=== PATIENT | male | born 1950 | race Caucasian/White ===

== ENCOUNTER 2016-12-08 11:25 | Inpatient (IN) | payer OTHER, MEDICARE ==
[2016-12-08] VITALS (10 sets, daily range): BP systolic 109–157; BP diastolic 47–91
[~2016-12-08] VITALS: Ht 165.1 cm; Wt 74.4 kg
--- NOTE | ~2016-12-08 | PR ---
[place], [place] PROGRESS NOTE NAME: ROYAL Donnie GREEN UNIT #: [id number] ROOM: 402 DOCTOR: ZAINAB LACY MD BIRTHDATE: [birth year] DOS: 12/12/2016 PULMONARY FOLLOWUP NOTE SUBJECTIVE: He has been currently noted n.p.o. past midnight. Bronchoscopy, continuous severe nonproductive cough. Shortness of breath, the patient wheezing was also noted intermittently. He has not been noted symptoms of chest pain or any abdominal pain. OBJECTIVE: VITAL SIGNS: Normal temperature 99, respiratory rate 26, blood pressure 120/64. Pulse oxygen saturation recorded on 3 liters cannula 92% saturation. HEENT: Showed no new change. NECK: Supple. CARDIOVASCULAR: S1, S2 audible. LUNGS: The patient was noted without any wheezing or crackles at the present time. Breaths are noted mildly decreased bilaterally. ABDOMEN: Soft, nontender. LABORATORY DATA: BMP that was done this morning shows glucose of 219. Sodium 135. CBC this morning, WBC count 15.7, hemoglobin 13.9, hematocrit 43.1, platelet count 527,000. Culture of the spontaneous sputum on 12/10/2016 showing normal jonn. The final culture results were pending. CT scan of the chest that was ordered for assessment of persistent infiltration on the left lower lobe. The patient was reviewed, it shows evidence of patchy infiltration noted in the lingula and left lower lobe and also area of consolidation noted in the left lower lobe as well. There was no abnormal lymphadenopathy any nodular opacities. IMPRESSION: 1. The patient with persistent acute pneumonia. The patient with resolving left lingula and the left lower lobe. Currently n.p.o. for bronchoscopy. 2. Leukocytosis secondary to acute pneumonia. 3. Acute exacerbation of chronic obstructive pulmonary disease. PLAN OF MANAGEMENT: Proceed with the bronchoscopy. No additional changes at this time in the treatment will be necessary. Any changes in the treatment if necessary will be done after the bronchoscopy. Other supportive plan and management as in progress. Usual care. [place], [place] PROGRESS NOTE NAME: ROYAL Donnie GREEN UNIT #: [id number] ROOM: 402 DOCTOR: ZAINAB LACY MD BIRTHDATE: [birth year] ZAINAB CASTORENA MD CM:PNTRANS [phone] ZAINAB HOFF MD 12/12/16 1154 interface
--- NOTE | ~2016-12-08 | CON ---
[place], [place] REPORT OF CONSULTATION NAME: ROYAL Donnie RGEEN UNIT #: [id number] ROOM: 402 DOCTOR: KELL HOFF MDZAINAB BIRTHDATE: [birth year] DOS: 12/09/2016 REASON FOR CONSULTATION: Assess the patient with COPD. CONSULTATION REQUESTED BY: Hospitalist services. HISTORY OF PRESENT ILLNESS: A 66-year-old white male with past medical history of centrilobular emphysema/COPD and chronic hypoxic respiratory failure, presented to the Emergency Room. The patient has been noted to be acutely ill for the past few days. He has been usually managed in [facility]. The patient requested antibiotics. The patient was advised to come to the Emergency Room. He has been seen in the Emergency Room, admitted to the hospital for acute exacerbation of COPD. Cough has been noted with moderate sputum expectoration intermittently with symptoms of shortness of breath, wheezing and chest congestion. The patient denies symptoms of hemoptysis. The patient described symptoms of chills as well as fever, intermittent for the past couple of days. REVIEW OF SYSTEMS: CONSTITUTIONAL: Denies symptoms of diaphoresis. Denies any abnormal weight loss history. EYES: Denies any burning, redness, tenderness, discharge or blurry vision. EARS, NOSE AND THROAT: Denies sore throat, hoarseness, otalgia, postnasal drainage or epistaxis. CARDIOVASCULAR: Denies anginal pain, edema or pain of the lower extremities. GASTROINTESTINAL: Denies dysphagia, nausea, vomiting, diarrhea, abdominal pain, hematemesis, melena, dysphagia or abnormal weight loss history. GENITOURINARY: Denies dysuria, suprapubic pain or hematuria. MUSCULOSKELETAL: Denies acute joint pain, redness or tenderness. SKIN: Denies lesions or rashes. CENTRAL NERVOUS SYSTEM: Denies dizziness, headache, tingling sensation. The remaining systems were reviewed with the patient, they were noted all negative. PAST MEDICAL HISTORY: 1. History of chronic hypoxic respiratory failure. 2. COPD/centrilobular emphysema. 3. History of type 2 diabetes mellitus. 4. Essential hypertension. 5. Hyperlipidemia. 6. History of pulmonary hypertension, details unknown. 7. Vitamin D deficiency. 8. Anemia of chronic disease. PAST SURGICAL HISTORY: 1. Appendectomy. 2. Cataract extraction. 3. Kidney stone removal. 4. Surgery of the extremities. SOCIAL HISTORY: The patient stated that he is , has one child. Tobacco [place], [place] REPORT OF CONSULTATION NAME: ROYAL Donnie GREEN UNIT #: [id number] ROOM: 402 DOCTOR: KELL HOFF MD,ZANIAB BIRTHDATE: [birth year] use noted as a teenager, 1 pack of cigarettes per day, discontinued in 2014 approximately. Denies history of occupation related pulmonary exposure, alcohol or any illicit drug use. FAMILY HISTORY: Father at the age of 79 years from complication related to cancer. Mother with complication related to rupture of the aneurysm. HOME MEDICATIONS: 1. Proventil HFA inhaler p.r.n. 2. Aspirin 81 mg p.o. daily. 3. Vitamin D, unknown dose daily. 4. Advair 250/50 one puff b.i.d. 5. Neurontin 600 mg at bedtime. 6. Atrovent HFA inhaler p.r.n. 7. DuoNeb q.i.d. p.r.n. for shortness of breath. DRUG ALLERGIES: SPIRIVA. PHYSICAL EXAMINATION: GENERAL: This is a 66-year-old male patient who has been currently noted without any acute distress, sitting on the side of the bed. VITAL SIGNS: The patient's height was recorded on admission as 5 feet 5 inches, weight of 164 pounds, BMI 27.3. Normal temperature at 99.5 degree Fahrenheit, respiratory rate 18-20, heart rate 95-106 and blood pressure 108/60 to 100/86. Pulse oxygen saturation on 4 liters nasal cannula 95%, this morning on 2 liters nasal cannula 97% saturation recorded. HEENT: Shows head is atraumatic. Eyes nonicterus. NECK: Supple. CARDIOVASCULAR: S1, S2 is audible. LUNGS: Noted without any crackles. Expiratory wheezing noted in the lungs bilaterally. ABDOMEN: Flat, soft, nontender. Bowel sounds present. EXTREMITIES: Show no edema, clubbing or cyanosis. SKIN: Shows no lesions or rashes. MUSCULOSKELETAL: There are no acute deformities. LABORATORY DATA: PT and PTT yesterday was noted as normal. CBC on 12/08/2016: WBC count 14.7, hemoglobin 14, hematocrit 42.2 and platelet count normal. CMP yesterday on admission: Glucose 180, BUN and creatinine normal, sodium 135, albumin 2.9, lactic acid yesterday noted as 1.5 on admission, troponin noted as normal yesterday on admission. CBC this morning: Hemoglobin 12.7, hematocrit 38.8, WBC count and platelet count normal. BMP that was done this morning: Glucose 130, BUN and creatinine normal, potassium mildly decreased at 3.2. Culture of the sputum, normal jonn preliminary. Gram stain shows many white blood cells with a few Gram-positive cocci. Chest x-ray that was done on 12/08/2016 was reviewed. It shows evidence of acute infiltration noted in the left lower lobe and the lingula. The findings compared to be as new since the last chest x-ray of patient was in 2012. [place], [place] REPORT OF CONSULTATION NAME: ROYAL Donnie GREEN UNIT #: [id number] ROOM: 402 DOCTOR: KELL HOFF MD,ZAINAB BIRTHDATE: [birth year] IMPRESSION: 1. The patient has been currently admitted to the hospital for suspected acute pneumonia, nonaspiration with typical and atypical organisms. Gram-positive cocci with Strep pneumonia was suspected with other atypical organisms as well. 2. Acute exacerbation of chronic obstructive pulmonary disease and acute on chronic hypoxic respiratory failure with oxygen dependency. 3. Past history of tobacco use as well. PLAN OF MANAGEMENT: The patient has been already getting intravenous antibiotic and that will be continued. Monitor culture results of the sputum. Obtain urine for Legionella antigen and the Strep pneumo antigen as well. Monitor cultures of blood which has been already sent yesterday. Other supportive therapy, plan and management and care. Usual treatment. Additional therapy to be made based on the progression of the illness. Supplement the mild hypokalemia. Usual care, other supportive therapy, plan of management and care. Additional changes in treatment will be done based on the progression of the illness. Monitor chest x-ray closely until there is resolution of this current abnormality. If the finding remains persistent, certainly consider obtaining a CT scan of the chest at that time. Thanks for allowing me to participate in the care of this patient. ZAINAB CASTORENA MD CM:CONSTR:REPORT OF CONSULTATION 1115 12/11/16 1258 interface
--- NOTE | ~2016-12-08 | PR ---
[place], [place] PROGRESS NOTE NAME: ROYAL Donnie GREEN UNIT #: [id number] ROOM: 402 DOCTOR: KELL HOFF MD,ZAINAB BIRTHDATE: [birth year] DOS: 12/13/2016 SUBJECTIVE: The patient has been noted comfortable with significant reduction and improvement in symptoms of cough after bronchoscopy. There were no symptoms of chest pain or abdominal pain. There was no wheezing noted today. OBJECTIVE: VITAL SIGNS: Normal temperature, respiratory rate 18, heart rate 81, and blood pressure 114/58. The pulse oxygen saturation on 3 L nasal cannula is 96% saturation. HEENT: Shows no acute change. NECK: Supple. CARDIOVASCULAR: S1, S2 audible. LUNGS: Noted without any wheezing or crackles at this time. ABDOMEN: Soft, nontender. LABORATORY DATA: Chest x-ray showed reduction of previously noted pulmonary infiltration of the left lower lobe. CMP was noted as normal except albumin 2.7. Preliminary culture of the bronchial washing showed normal jonn. Gram stain showed few white blood cells, epithelial cells as well as Gram-positive cocci in pairs and clusters. IMPRESSION: Resolving acute pneumonia in left lingula and left lower lobe with partial improvement in some of the areas, which was most likely related to atelectasis resolving. Leukocytosis still noted with WBC count today 21.4, most likely related to the use of corticosteroids. PLAN OF TREATMENT: The patient could be discharged home on oral doxycycline and tapering prednisone. Outpatient chest x-ray could be done in a couple of weeks to reassess through the [facility]. ZAINAB CASTORENA MD CM:PNTRANS [id number] ZAINAB HOFF MD 12/13/16 1404 interface
--- NOTE | ~2016-12-08 | PR ---
[place], [place] PROGRESS NOTE NAME: ROYAL Donnie GREEN UNIT #: [id number] ROOM: 402 DOCTOR: ZAINAB LACY MD BIRTHDATE: [birth year] DOS: 12/10/2016 SUBJECTIVE: He has reported gradual reduction and improvement of the respiratory symptoms. Denies symptoms of chest pain or any abdominal pain. The coughing has been noted with copious amount of purulent sputum. Denies any symptoms of hemoptysis. OBJECTIVE: VITAL SIGNS: Normal temperature, respiratory rate 20, heart rate 84, blood pressure 114/56 - 117/42. Pulse oxygen saturation on 2 liters nasal cannula 95% saturation. HEENT: No acute change. NECK: Supple. CARDIOVASCULAR: S1, S2 audible. LUNGS: Crackles in the left lung was noted with expiratory wheezing. ABDOMEN: Soft, nontender. LABORATORY DATA: Culture of the sputum showed normal jonn. Blood culture from the 14 showed no bacterial growth. CMP of this morning was noted normal BUN and creatinine, CO2 was 33. CBC: Normal WBC count, hemoglobin and hematocrit was noted with normal platelet count 388,000. IMPRESSION: 1. Acute bacterial pneumonia in the left lower lobe which is noted with significant infiltration in the left lung. 2. Chronic obstructive pulmonary disease. 3. Past history of nicotine abuse. PLAN OF TREATMENT: Continue antibiotics, bronchodilators. Repeat chest x-ray in the morning to reassess the progression of pneumonia prior to consideration for home discharge. Repeat another sputum culture as well because of copious amount of sputum expectoration being noted. Other supportive therapy, plan of management. Usual care. [place], [place] PROGRESS NOTE NAME: ROYAL Donnie GREEN UNIT #: [id number] ROOM: 402 DOCTOR: ZAINAB LACY MD BIRTHDATE: [birth year] ZAINAB CASTORENA MD CM:PNTRANS [phone] ZAINAB HOFF MD 12/10/162228 interface
--- NOTE | ~2016-12-08 | PROC NOTE ---
[place], [place] PROCEDURE NOTE NAME: ROYAL Donnie GREEN UNIT #: [id number] ROOM: 402 DOCTOR: KELL HOFF MD,ZAINAB BIRTHDATE: [birth year] DOS: 12/12/2016 BRONCHOSCOPY NOTE PREOPERATIVE DIAGNOSIS: Persistent infiltration in the left lingular lower lobe. POSTOPERATIVE DIAGNOSES: Persistent infiltration in the left lingular lower lobe with removal of mucus plugs from airways as well as ongoing tracheobronchitis. PROCEDURE DESCRIPTION: Informed consent was obtained for the patient. The patient was brought to the OR and placed in supine position. Conscious sedation was administered by the Anesthesia Department. After achieving appropriate sedation, airway introduced into the mouth. Bronchoscope was advanced into the airway into laryngeal area. Epiglottis and vocal cords were seen. The vocal cord was noted to be yellowish in color, moving symmetrical with movements. Bronchoscope was advanced to the vocal cord and tracheal lumen showed moderate amount of thick mucus secretions and small purulent secretions suctioned out at the yesenia level. Left upper, lingular, lower and right upper, right middle, right lower lobe bronchi were all examined. The patient was noted with moderate impaction of the mucus plugs and endobronchial tree bilaterally, suctioned out with the help of normal saline wash and sent for cultures. No endobronchial obstructive lesions were noted. The patient tolerated procedure very well without any complications. Postoperative findings were discussed with the patient's spouse in detail after that. ZAINAB CASTORENA MD CM:PROCNOTE:PROCEDURE NOTE [id number] ZAINAB HOFF MD
--- NOTE | ~2016-12-08 | PR ---
[place], [place] PROGRESS NOTE NAME[id number] UNIT #: [id number] ROOM: 402 DOCTOR: KELL HOFF MD,ZAINAB BIRTHDATE: [birth year] DOS: 12/11/2016 SUBJECTIVE: The patient has been noted with similar respiratory status, still noted with severe cough, which has been noted currently nonproductive today. The patient has been noted significant sputum expectoration yesterday. He denies any symptoms of chest pain or any abdominal pain. OBJECTIVE: VITAL SIGNS: Recorded temperature normal, respiratory rate 20, heart rate 88, blood pressure 124/66-133/61. Pulse oxygen saturation on 2 liters nasal cannula was recorded 94% saturation. HEENT: Head was atraumatic. Eyes nonicterus. NECK: Supple. CARDIOVASCULAR: S1, S2 audible. LUNGS: The patient was noted with generalized reduced air entry into the lungs with questionable crackles in the right lung. ABDOMEN: Soft and nontender. LABORATORY DATA: Chest x-ray 2 view that was done this morning was reviewed. It shows persistent infiltration in the left lung. Hyperinflation changes of COPD were also noted. CBC this morning showed normal WBC count, hemoglobin 13, hematocrit 39.8, and platelet count was normal. CMP on 12/11/2016 was also noted with BUN 13, creatinine was normal, and glucose 133. IMPRESSION: The patient who has been currently noted with persistent infiltration in the lung with acute pneumonia. In addition, acute exacerbation of chronic obstructive pulmonary disease would be considered as well with severe nonproductive cough. Suspected mucous impaction of the airways as well. PLAN OF TREATMENT: The patient has been started on intravenous Solu-Medrol. CT scan of the chest was ordered with contrast for further assessment, recurrent persistent infiltration not improving for more clear anatomic delineation of the problem. Bronchoscopy was suggested, will be done tomorrow to help clear secretions with conscious sedation. The risks and benefits of the procedure were discussed with the patient. The patient was agreeable for the procedure and it was scheduled to be done in the morning. In addition, Zithromax will be discontinued. The patient was started on doxycycline for additional Gram-positive coverage for atypical infections. Other supportive therapy, plan and management as well. Usual care. Additional treatment changes continue to be made based on the progression of the illness. [place], [place] PROGRESS NOTE NAME: ROYAL Donnie GREEN UNIT #: [id number] ROOM: 402 DOCTOR: ZAINAB LACY MD BIRTHDATE: [birth year] ZAINAB CASTORENA MD CM:PNTRANS [id number] ZAINAB HOFF MD 12/11/16 1308 interface
[~2016-12-08 11:25] MED LIST: ADVAIR 250/501 EA INH; ALBUTEROL0.09 MG/A2 IH; AMOXIL500 MG PO; ASPIRIN81 M1 PO; ATROVENT H0.017 MG/A INH; CIPRO500 MG PO; DELTASONE10 MG PO; DICLOFENAC NA25 MG PO; DOXYCYCLINE100 MG PO; DUONEB 3 MG/3 ML3 M1 INH; LEVOFLOXACIN500 MG PO; NEURONTIN600 MG PO; PREDNISONE10 MG PO; PREDNISONE20 M1 PO; PRILOSEC20 M1 PO; SIMVASTATIN20 MG PO; VITAMIN B11000 MCG/M IM; VITAMIN D31000 UNI1 PO; VITAMIN D50000 I3 PO; [UNRECOGNIZED DRUG - OTHER] PO
[2016-12-08 12:18] LABS: BASO % 0.3 % (0.0-1.0); EOS # 0.1 10*3/uL (0.0-0.4); EOS % 0.7 % (1.0-4.0); HEMATOCRIT 42.2 % (42.0-52.0); HEMOGLOBIN 14.1 g/dl (14.0-18.0); IG # 0.1 10*3/uL (0.0-0.1); LYMPH # 1.5 10*3/uL (1.3-4.4); LYMPH % 10.3 % (27.0-41.0); MEAN CELL VOLUME 97.7 fl (80.0-94.0); MEAN CORPUSCULAR HGB 32.6 pg (27.0-31.0); MEAN CORPUSCULAR HGB CONC 33.4 g/dl (33.0-37.0); MEAN PLATELET VOLUME 9.5 fl (9.6-12.3); MONO # 1.4 10*3/uL (0.1-1.0); MONO % 9.3 % (3.0-9.0); NEUT # 11.5 10*3/uL (2.3-7.9); NEUT % 78.5 % (47.0-73.0); PLATELET COUNT AUTOMATED 376 10*3/uL (130-400); RED BLOOD COUNT 4.32 10*6/uL (4.50-5.90); WHITE BLOOD COUNT 14.7 10*3/uL (4.8-10.8)
[2016-12-08 12:28] LABS: PROTHROMBIN TIME 10.1 SECONDS (9.0-12.4)
[2016-12-08 12:35] LABS: ALBUMIN 2.9 gm/dl (3.1-4.5); ALKALINE PHOSPHATASE 98 U/L (45-117); BILIRUBIN, TOTAL 0.4 mg/dl (0.2-1.0); BUN 10 mg/dl (7-24); CARBON DIOXIDE 30 mmol/L (21-32); CHLORIDE 96 mmol/L (98-107); EST GLOM FILT AFRICAN AMERICAN > 60 ml/min; GLUCOSE 180 mg/dL (65-99); MAGNESIUM 2.3 mg/dL (1.5-2.1); POTASSIUM 3.6 mmol/L (3.5-5.1); SGOT/AST 15 IU/L (3-35); SGPT/ALT 35 U/L (12-78); SODIUM 135 mmol/L (136-145); TOTAL PROTEIN 7.9 gm/dL (6.4-8.2)
[2016-12-08 12:38] LABS: TROPONIN I < 0.015 ng/ml (<0.045)
[2016-12-08] MEDS ORDERED: PROVENTIL HFA6.7 GM INH (16:55)
[2016-12-08] MEDS ORDERED: ASMANEX110 MC1 INH (16:58)
[2016-12-08] MEDS ORDERED: VOLTAREN50 M1 PO (16:59)
[2016-12-08] MEDS ORDERED: ASMANEX INH (17:00)
[2016-12-08] MEDS ORDERED: ASMANEX220 MCG INH (20:57)
[2016-12-09] VITALS: BP 108/60
[2016-12-09 05:43] LABS: BUN 12 mg/dl (7-24); CARBON DIOXIDE 29 mmol/L (21-32); CHLORIDE 100 mmol/L (98-107); CHOLESTEROL 188 mg/dL (<200); EST GLOM FILT AFRICAN AMERICAN > 60 ml/min; GLUCOSE 130 mg/dL (65-99); MAGNESIUM 2.4 mg/dL (1.5-2.1); PHOSPHOROUS 3.6 mg/dL (2.5-4.9); POTASSIUM 3.2 mmol/L (3.5-5.1); SODIUM 136 mmol/L (136-145); TRIGLYCERIDES 141 mg/dl (<150); VLDL CHOLESTEROL 28 mg/dL (6-40)
[2016-12-09 05:44] LABS: HDL CHOLESTEROL 32 mg/dl (40-60); LDL CHOLESTEROL 128 mg/dL (9-159)
[2016-12-09 05:58] LABS: BASO # 0.1 10*3/uL (0.0-0.1); BASO % 0.7 % (0.0-1.0); EOS # 0.2 10*3/uL (0.0-0.4); EOS % 2.1 % (1.0-4.0); HEMATOCRIT 38.8 % (42.0-52.0); HEMOGLOBIN 12.7 g/dl (14.0-18.0); IG # 0.2 10*3/uL (0.0-0.1); LYMPH % 20.3 % (27.0-41.0); MEAN CORPUSCULAR HGB 31.8 pg (27.0-31.0); MEAN CORPUSCULAR HGB CONC 32.7 g/dl (33.0-37.0); MONO # 1.2 10*3/uL (0.1-1.0); MONO % 12.4 % (3.0-9.0); NEUT # 6.3 10*3/uL (2.3-7.9); PLATELET COUNT AUTOMATED 369 10*3/uL (130-400)
[2016-12-09 06:37] LABS: HEMOGLOBIN A1c 6.9 % (4.8-5.6)
[2016-12-09 08:00] VITALS: BP 100/86
[2016-12-09 12:00] VITALS: BP 123/58
[2016-12-09 16:00] VITALS: BP 126/63
[2016-12-09 16:53] LABS: VITAMIN D, 25-HYDROXY 34.2 ng/mL (30-100)
[2016-12-09 16:54] LABS: FOLIC ACID 8.64 ng/mL (>5.38)
[2016-12-09 20:00] VITALS: BP 115/60
[2016-12-10] VITALS: BP 117/42
[2016-12-10 04:46] LABS: BASO % 0.5 % (0.0-1.0); EOS # 0.2 10*3/uL (0.0-0.4); EOS % 2.8 % (1.0-4.0); HEMATOCRIT 39.5 % (42.0-52.0); HEMOGLOBIN 12.9 g/dl (14.0-18.0); IG # 0.1 10*3/uL (0.0-0.1); LYMPH # 1.9 10*3/uL (1.3-4.4); LYMPH % 22.7 % (27.0-41.0); MEAN CORPUSCULAR HGB CONC 32.7 g/dl (33.0-37.0); MEAN PLATELET VOLUME 9.6 fl (9.6-12.3); MONO # 0.9 10*3/uL (0.1-1.0); MONO % 10.3 % (3.0-9.0); NEUT # 5.3 10*3/uL (2.3-7.9); PLATELET COUNT AUTOMATED 388 10*3/uL (130-400); RED BLOOD COUNT 4.03 10*6/uL (4.50-5.90); WHITE BLOOD COUNT 8.5 10*3/uL (4.8-10.8)
[2016-12-10 05:05] LABS: ALBUMIN 2.5 gm/dl (3.1-4.5); ALKALINE PHOSPHATASE 84 U/L (45-117); BILIRUBIN, TOTAL 0.3 mg/dl (0.2-1.0); BUN 12 mg/dl (7-24); CARBON DIOXIDE 33 mmol/L (21-32); CHLORIDE 100 mmol/L (98-107); EST GLOM FILT AFRICAN AMERICAN > 60 ml/min; GLUCOSE 127 mg/dL (65-99); SGOT/AST 19 IU/L (3-35); SGPT/ALT 38 U/L (12-78)
[2016-12-10 05:08] LABS: SODIUM 139 mmol/L (136-145)
[2016-12-10 05:09] LABS: POTASSIUM 4.2 mmol/L (3.5-5.1)
[2016-12-10 08:00] VITALS: BP 114/56
[2016-12-10 12:00] VITALS: BP 114/76; BP 114/761
[2016-12-10 16:00] VITALS: BP 120/66
[2016-12-10 20:00] VITALS: BP 129/57
[2016-12-11] VITALS: BP 133/61
[2016-12-11 05:53] LABS: ALBUMIN 2.7 gm/dl (3.1-4.5); BUN 13 mg/dl (7-24); CARBON DIOXIDE 32 mmol/L (21-32); CHLORIDE 99 mmol/L (98-107); GLUCOSE 133 mg/dL (65-99); POTASSIUM 3.9 mmol/L (3.5-5.1); SODIUM 137 mmol/L (136-145)
[2016-12-11 05:57] LABS: ALKALINE PHOSPHATASE 80 U/L (45-117); BILIRUBIN, TOTAL 0.2 mg/dl (0.2-1.0); EST GLOM FILT AFRICAN AMERICAN > 60 ml/min; SGOT/AST 21 IU/L (3-35); SGPT/ALT 41 U/L (12-78); TOTAL PROTEIN 7.2 gm/dL (6.4-8.2)
[2016-12-11 06:06] LABS: BASO # 0.1 10*3/uL (0.0-0.1); BASO % 0.7 % (0.0-1.0); EOS # 0.4 10*3/uL (0.0-0.4); EOS % 3.3 % (1.0-4.0); HEMATOCRIT 39.8 % (42.0-52.0); IG # 0.2 10*3/uL (0.0-0.1); LYMPH # 2.2 10*3/uL (1.3-4.4); LYMPH % 21.1 % (27.0-41.0); MEAN CELL VOLUME 97.5 fl (80.0-94.0); MEAN CORPUSCULAR HGB 31.9 pg (27.0-31.0); MEAN CORPUSCULAR HGB CONC 32.7 g/dl (33.0-37.0); MEAN PLATELET VOLUME 9.6 fl (9.6-12.3); MONO # 0.8 10*3/uL (0.1-1.0); NEUT # 6.9 10*3/uL (2.3-7.9); NEUT % 65.5 % (47.0-73.0); PLATELET COUNT AUTOMATED 466 10*3/uL (130-400); RED BLOOD COUNT 4.08 10*6/uL (4.50-5.90); WHITE BLOOD COUNT 10.5 10*3/uL (4.8-10.8)
[2016-12-11 08:00] VITALS: BP 124/66
[2016-12-11 12:00] VITALS: BP 127/60
[2016-12-11 15:09] LABS: ORGANISM ID Not indicated. (.); SPECIMEN SOURCE Urine (.); STREPTOCOCCUS PNEUMONIAE AG Negative (Negative)
[2016-12-11 16:00] VITALS: BP 138/66
[2016-12-11 16:11] LABS: LEGIONELLA URINARY ANTIGEN Negative (Negative)
[2016-12-11 20:00] VITALS: BP 133/60
[2016-12-12] VITALS (9 sets, daily range): BP systolic 115–147; BP diastolic 56–109
[2016-12-12 05:20] LABS: BUN 16 mg/dl (7-24); CARBON DIOXIDE 32 mmol/L (21-32); CHLORIDE 96 mmol/L (98-107); EST GLOM FILT AFRICAN AMERICAN > 60 ml/min; GLUCOSE 219 mg/dL (65-99); POTASSIUM 4.6 mmol/L (3.5-5.1); SODIUM 135 mmol/L (136-145)
[2016-12-12 05:53] LABS: HEMATOCRIT 43.1 % (42.0-52.0); HEMOGLOBIN 13.9 g/dl (14.0-18.0); MEAN CELL VOLUME 97.5 fl (80.0-94.0); MEAN CORPUSCULAR HGB 31.4 pg (27.0-31.0); MEAN CORPUSCULAR HGB CONC 32.3 g/dl (33.0-37.0); MEAN PLATELET VOLUME 9.5 fl (9.6-12.3); PLATELET COUNT AUTOMATED 527 10*3/uL (130-400); RED BLOOD COUNT 4.42 10*6/uL (4.50-5.90); RED CELL DISTRI WIDTH 12.8 % (0-14.5); WHITE BLOOD COUNT 15.7 10*3/uL (4.8-10.8)
[2016-12-12 06:56] LABS: LYMPHOCYTE # 1.4 10*3/uL (1.3-4.4); METAMYELOCYTES 1 % (0-0); MONOCYTE # 0.2 10*3/uL (0.1-1.0); NEUTROPHILS 89 % (47-73); TOTAL CELLS COUNTED 100 #CELLS
[2016-12-12 06:57] LABS: PLATELET SUFFICIENCY HIGH (NORMAL); TOXIC GRANULATION SLIGHT
[2016-12-13] VITALS: BP 131/61; BP 144/64
[2016-12-13 04:00] VITALS: BP 130/60
[2016-12-13 07:12] LABS: BASO # 0.1 10*3/uL (0.0-0.1); BASO % 0.2 % (0.0-1.0); EOS % 0.1 % (1.0-4.0); HEMATOCRIT 38.2 % (42.0-52.0); HEMOGLOBIN 12.7 g/dl (14.0-18.0); IG # 0.2 10*3/uL (0.0-0.1); LYMPH # 3.1 10*3/uL (1.3-4.4); LYMPH % 14.6 % (27.0-41.0); MEAN CELL VOLUME 96.7 fl (80.0-94.0); MEAN CORPUSCULAR HGB 32.2 pg (27.0-31.0); MEAN CORPUSCULAR HGB CONC 33.2 g/dl (33.0-37.0); MEAN PLATELET VOLUME 9.4 fl (9.6-12.3); MONO # 0.9 10*3/uL (0.1-1.0); MONO % 4.3 % (3.0-9.0); NEUT # 17.1 10*3/uL (2.3-7.9); NEUT % 79.9 % (47.0-73.0); PLATELET COUNT AUTOMATED 478 10*3/uL (130-400); RED BLOOD COUNT 3.95 10*6/uL (4.50-5.90); RED CELL DISTRI WIDTH 12.8 % (0-14.5); WHITE BLOOD COUNT 21.4 10*3/uL (4.8-10.8)
[2016-12-13 07:28] LABS: ALBUMIN 2.7 gm/dl (3.1-4.5); ALKALINE PHOSPHATASE 73 U/L (45-117); BILIRUBIN, TOTAL 0.2 mg/dl (0.2-1.0); BUN 19 mg/dl (7-24); CARBON DIOXIDE 31 mmol/L (21-32); CHLORIDE 98 mmol/L (98-107); EST GLOM FILT AFRICAN AMERICAN > 60 ml/min; GLUCOSE 95 mg/dL (65-99); POTASSIUM 3.9 mmol/L (3.5-5.1); SGOT/AST 18 IU/L (3-35); SGPT/ALT 40 U/L (12-78); SODIUM 139 mmol/L (136-145); TOTAL PROTEIN 6.8 gm/dL (6.4-8.2)
[2016-12-13 08:00] VITALS: BP 114/58
[2016-12-13] MEDS ORDERED: PREDNISONE10 MG PO (11:27)
[2016-12-13] MEDS ORDERED: DOXYCYCLINE100 M3 PO (11:27)
[2016-12-13 13:05] LABS: ACID FAST SPEC PROCESSING Concentration (.)
== END 2016-12-13 12:15 | disposition home or self-care (01) | DRG 871 ==
LOC: ED 11:25 → 4E 13:13 → EDHOLD 13:13 → 4E 13:21
PROVIDERS: Emergency Medicine; Internal Medicine; Internal Medicine Critical Care Medicine; Internal Medicine Hospice and Palliative Medicine; Registered Nurse
DX: A41.9 Sepsis, unspecified organism (principal); J15.6 Pneumonia due to other Gram-negative bacteria; J96.21 Acute and chronic respiratory failure with hypoxia; E43 Unspecified severe protein-calorie malnutrition; I11.0 Hypertensive heart disease with heart failure; I50.32 Chronic diastolic (congestive) heart failure; T17.590A Other foreign object in bronchus causing asphyxiation, initial encounter; E83.41 Hypermagnesemia; I27.2 Other secondary pulmonary hypertension; E87.1 Hypo-osmolality and hyponatremia; J44.1 Chronic obstructive pulmonary disease with (acute) exacerbation; J44.0 Chronic obstructive pulmonary disease with (acute) lower respiratory infection; E87.8 Other disorders of electrolyte and fluid balance, not elsewhere classified; E87.6 Hypokalemia; J40 Bronchitis, not specified as acute or chronic; D53.9 Nutritional anemia, unspecified; D63.8 Anemia in other chronic diseases classified elsewhere; D47.3 Essential (hemorrhagic) thrombocythemia; E11.65 Type 2 diabetes mellitus with hyperglycemia; E78.5 Hyperlipidemia, unspecified; X58.XXXA Exposure to other specified factors, initial encounter; Y93.89 Activity, other specified; Y92.89 Other specified places as the place of occurrence of the external cause; Y99.8 Other external cause status; Z88.8 Allergy status to other drugs, medicaments and biological substances; Z68.27 Body mass index [BMI] 27.0-27.9, adult; Z90.49 Acquired absence of other specified parts of digestive tract; Z87.891 Personal history of nicotine dependence; Z99.81 Dependence on supplemental oxygen; Z98.49 Cataract extraction status, unspecified eye; Z80.9 Family history of malignant neoplasm, unspecified; Z79.51 Long term (current) use of inhaled steroids; Z79.82 Long term (current) use of aspirin; Z79.899 Other long term (current) drug therapy

== ENCOUNTER → 2017-09-30 | Outpatient (CLI) | payer OTHER, MEDICARE ==
[~2017-09-30] MED LIST changes: +ASMANEX INH; +ASMANEX110 MC1 INH; +ASMANEX220 MCG INH; +DOXYCYCLINE100 M3 PO; +PROVENTIL HFA6.7 GM INH; +VOLTAREN50 M1 PO
[2017-09-30 13:27] LABS: BUN 15 mg/dl (7-24); CHLORIDE 91 mmol/L (98-107); CREATININE 1.37 mg/dL (0.70-1.30); POTASSIUM 3.1 mmol/L (3.5-5.1); SODIUM 137 mmol/L (136-145)
== END | disposition home or self-care (01) ==
LOC: LAB 12:43
PROVIDERS: Nurse Practitioner Family
DX: E87.6 Hypokalemia (principal)

== ENCOUNTER → 2019-04-21 | Outpatient (CLI) | payer OTHER | END | disposition home or self-care (01) | LOC: CT 10:29 | DX: J18.0 Bronchopneumonia, unspecified organism (principal); D47.3 Essential (hemorrhagic) thrombocythemia; J44.9 Chronic obstructive pulmonary disease, unspecified; Z86.2 Personal history of diseases of the blood and blood-forming organs and certain disorders involving the immune mechanism; Z87.891 Personal history of nicotine dependence ==

== ENCOUNTER 2021-01-11 19:07 | Inpatient (IN) | payer OTHER ==
[~2021-01-11] VITALS: Ht 170.1 cm; Wt 68.0 kg
[2021-01-11 19:07] VITALS: BP 146/69
[2021-01-11 19:40] LABS: BASO # 0.1 10*3/uL (0.0-0.1); BASO % 0.3 % (0.0-1.0); EOS # 0.2 10*3/uL (0.0-0.4); EOS % 1.1 % (1.0-4.0); HEMATOCRIT 42.9 % (42.0-52.0); LYMPH # 1.2 10*3/uL (1.3-4.4); LYMPH % 7.3 % (27.0-41.0); MEAN CELL VOLUME 96.4 fl (80.0-94.0); MEAN CORPUSCULAR HGB 31.2 pg (27.0-31.0); MEAN CORPUSCULAR HGB CONC 32.4 g/dl (33.0-37.0); MEAN PLATELET VOLUME 9.2 fl (9.6-12.3); MONO % 6.2 % (3.0-9.0); NEUT # 13.4 10*3/uL (2.3-7.9); NEUT % 84.7 % (47.0-73.0); PLATELET COUNT AUTOMATED 425 10*3/uL (130-400); RED BLOOD COUNT 4.45 10*6/uL (4.50-5.90); RED CELL DISTRI WIDTH 13.4 % (0-14.5); WHITE BLOOD COUNT 15.9 10*3/uL (4.8-10.8)
[2021-01-11 19:58] LABS: ALBUMIN 3.2 gm/dl (3.1-4.5); ALKALINE PHOSPHATASE 149 U/L (45-117); BUN 15 mg/dl (7-24); CHLORIDE 96 mmol/L (98-107); POTASSIUM 3.6 mmol/L (3.5-5.1); SGOT/AST 26 IU/L (3-35); SGPT/ALT 35 U/L (12-78); SODIUM 137 mmol/L (136-145); TOTAL PROTEIN 7.1 gm/dL (6.4-8.2)
[2021-01-11 20:00] LABS: TROPONIN I < 0.015 ng/ml (<0.045)
[2021-01-11 23:21] LABS: ABG BASE EXCESS 4.8 mmol/L (-2.0-2.0); ARTERIAL BLOOD GAS PH 7.408 (7.35-7.45); ARTERIAL BLOOD GAS PO2 64.4 (80-90)
[2021-01-12] VITALS (9 sets, daily range): BP systolic 103–134; BP diastolic 52–71
[2021-01-12 06:16] LABS: HEMATOCRIT 41.6 % (42.0-52.0); MEAN CELL VOLUME 97.4 fl (80.0-94.0); MEAN CORPUSCULAR HGB 30.7 pg (27.0-31.0); MEAN CORPUSCULAR HGB CONC 31.5 g/dl (33.0-37.0); MEAN PLATELET VOLUME 9.5 fl (9.6-12.3); PLATELET COUNT AUTOMATED 421 10*3/uL (130-400); RED BLOOD COUNT 4.27 10*6/uL (4.50-5.90); RED CELL DISTRI WIDTH 13.5 % (0-14.5); WHITE BLOOD COUNT 8.7 10*3/uL (4.8-10.8)
[2021-01-12 06:25] LABS: ALBUMIN 3.1 gm/dl (3.1-4.5); ALKALINE PHOSPHATASE 140 U/L (45-117); BUN 15 mg/dl (7-24); CHLORIDE 96 mmol/L (98-107); CHOLESTEROL 170 mg/dL (<200); CREATININE 1.27 mg/dL (0.70-1.30); LDL CHOLESTEROL 83 mg/dL (9-159); SGOT/AST 15 IU/L (3-35); SGPT/ALT 30 U/L (12-78); SODIUM 138 mmol/L (136-145); TRIGLYCERIDES 58 mg/dl (<150)
[2021-01-12 06:30] LABS: THYROID STIM HORMONE (HS) 0.304 uIU/ml (0.358-4.75)
[2021-01-12 06:40] LABS: ACT PARTIAL THROMBO TIME 26.4 SECONDS (20.0-32.1); INTERNATIONAL NORM RATIO 0.9 (2.0-3.5)
[2021-01-12 06:42] LABS: POTASSIUM 4.8 mmol/L (3.5-5.1)
[2021-01-12 06:58] LABS: PLATELET SUFFICIENCY HIGH (NORMAL); TOTAL CELLS COUNTED 100 #CELLS
[2021-01-12 09:21] LABS: VITAMIN D, 25-HYDROXY 46.3 ng/mL (30-100)
[2021-01-13] VITALS: BP 111/53
[2021-01-13 06:09] LABS: MEAN CORPUSCULAR HGB 31.1 pg (27.0-31.0); MEAN CORPUSCULAR HGB CONC 32.4 g/dl (33.0-37.0); MEAN PLATELET VOLUME 9.4 fl (9.6-12.3); PLATELET COUNT AUTOMATED 379 10*3/uL (130-400); RED BLOOD COUNT 3.96 10*6/uL (4.50-5.90); RED CELL DISTRI WIDTH 13.5 % (0-14.5); WHITE BLOOD COUNT 15.5 10*3/uL (4.8-10.8)
[2021-01-13 06:38] LABS: ALKALINE PHOSPHATASE 113 U/L (45-117); BUN 19 mg/dl (7-24); CHLORIDE 98 mmol/L (98-107); CREATININE 0.93 mg/dL (0.70-1.30); POTASSIUM 4.2 mmol/L (3.5-5.1); SGOT/AST 13 IU/L (3-35); SGPT/ALT 23 U/L (12-78); SODIUM 136 mmol/L (136-145); TOTAL PROTEIN 6.5 gm/dL (6.4-8.2)
[2021-01-13 07:31] LABS: PLATELET SUFFICIENCY NORMAL (NORMAL); TOTAL CELLS COUNTED 100 #CELLS
[2021-01-13 08:00] VITALS: BP 123/73
[2021-01-13 12:00] VITALS: BP 114/69
[2021-01-13 16:00] VITALS: BP 131/71
[2021-01-13 20:00] VITALS: BP 134/72
[2021-01-14] VITALS: BP 129/67
[2021-01-14 07:03] LABS: HEMATOCRIT 37.7 % (42.0-52.0); MEAN CELL VOLUME 98.4 fl (80.0-94.0); MEAN CORPUSCULAR HGB 31.3 pg (27.0-31.0); MEAN CORPUSCULAR HGB CONC 31.8 g/dl (33.0-37.0); MEAN PLATELET VOLUME 9.4 fl (9.6-12.3); PLATELET COUNT AUTOMATED 369 10*3/uL (130-400); RED BLOOD COUNT 3.83 10*6/uL (4.50-5.90); RED CELL DISTRI WIDTH 13.9 % (0-14.5); WHITE BLOOD COUNT 14.2 10*3/uL (4.8-10.8)
[2021-01-14 07:14] LABS: BUN 20 mg/dl (7-24); CHLORIDE 100 mmol/L (98-107); CREATININE 0.93 mg/dL (0.70-1.30); POTASSIUM 4.9 mmol/L (3.5-5.1); SODIUM 137 mmol/L (136-145)
[2021-01-14 08:00] VITALS: BP 110/48; BP 118/50
[2021-01-14 08:34] LABS: TOTAL CELLS COUNTED 100 #CELLS
[2021-01-14 08:35] LABS: PLATELET SUFFICIENCY NORMAL (NORMAL)
[2021-01-14 12:00] VITALS: BP 136/65
[2021-01-14 20:00] VITALS: BP 150/73
[2021-01-15] VITALS: BP 146/72
[2021-01-15 08:00] VITALS: BP 133/78
[2021-01-15] MEDS ORDERED: MUCINEX1200 M1 PO (12:36)
[2021-01-15] MEDS ORDERED: ZITHROMAX250 MG PO (12:36)
[2021-01-15] MEDS ORDERED: PREDNISONE10 MG PO (12:36)
[2021-01-15] MEDS ORDERED: GLUCOPHAGE500 MG PO (12:36)
== END 2021-01-15 13:32 | disposition home or self-care (01) | DRG 871 ==
LOC: ED 19:07 → EDHOLD 22:14 → 4E 22:14
PROVIDERS: Emergency Medicine; Family Medicine; Hospitalist; Internal Medicine; ADMIT Internal Medicine; ATTEND Internal Medicine
DX: A41.9 Sepsis, unspecified organism (principal); J96.21 Acute and chronic respiratory failure with hypoxia; J96.22 Acute and chronic respiratory failure with hypercapnia; J18.9 Pneumonia, unspecified organism; J44.1 Chronic obstructive pulmonary disease with (acute) exacerbation; I50.32 Chronic diastolic (congestive) heart failure; J44.0 Chronic obstructive pulmonary disease with (acute) lower respiratory infection; D53.9 Nutritional anemia, unspecified; E53.8 Deficiency of other specified B group vitamins; E11.9 Type 2 diabetes mellitus without complications; Z99.81 Dependence on supplemental oxygen; I10 Essential (primary) hypertension; F10.10 Alcohol abuse, uncomplicated; E78.2 Mixed hyperlipidemia; Z90.49 Acquired absence of other specified parts of digestive tract; Z87.891 Personal history of nicotine dependence; Z88.8 Allergy status to other drugs, medicaments and biological substances; Z79.82 Long term (current) use of aspirin; Z79.899 Other long term (current) drug therapy

== ENCOUNTER 2021-08-06 21:48 | Inpatient (IN) | payer OTHER ==
[~2021-08-06] VITALS: Ht 160 cm; Wt 64.0 kg
[~2021-08-06 21:48] MED LIST changes: +GLUCOPHAGE500 MG PO; +MUCINEX1200 M1 PO; +ZITHROMAX250 MG PO
[2021-08-06 21:50] VITALS: BP 168/78
[2021-08-06 22:23] LABS: HEMATOCRIT 42.9 % (42.0-52.0); MEAN CELL VOLUME 96.8 fl (80.0-94.0); MEAN CORPUSCULAR HGB 32.7 pg (27.0-31.0); MEAN CORPUSCULAR HGB CONC 33.8 g/dl (33.0-37.0); MEAN PLATELET VOLUME 9.1 fl (9.6-12.3); PLATELET COUNT AUTOMATED 447 10*3/uL (130-400); RED BLOOD COUNT 4.43 10*6/uL (4.50-5.90); RED CELL DISTRI WIDTH 12.7 % (0-14.5); WHITE BLOOD COUNT 12.9 10*3/uL (4.8-10.8)
[2021-08-06 22:27] LABS: MANUAL DIFF REFLEX YES
[2021-08-06 22:38] LABS: ALKALINE PHOSPHATASE 192 U/L (45-117); BUN 15 mg/dl (7-24); CHLORIDE 95 mmol/L (98-107); CREATININE 1.15 mg/dL (0.70-1.30); SGOT/AST 17 IU/L (3-35); SGPT/ALT 22 U/L (12-78); SODIUM 135 mmol/L (136-145); TOTAL PROTEIN 7.8 gm/dL (6.4-8.2)
[2021-08-06 22:46] LABS: PLATELET SUFFICIENCY HIGH (NORMAL); TOTAL CELLS COUNTED 100 #CELLS
[2021-08-06 23:19] VITALS: BP 158/70
[2021-08-06 23:31] LABS: ABG BASE EXCESS 1.9 mmol/L (-2.0-2.0); ARTERIAL BLOOD GAS PH 7.359 (7.35-7.45); ARTERIAL BLOOD GAS PO2 267.8 (80-90)
[2021-08-07 01:34] VITALS: BP 149/71
[2021-08-07 02:48] VITALS: BP 114/64
[2021-08-07 03:04] LABS: HEMATOCRIT 39.5 % (42.0-52.0); MEAN CELL VOLUME 96.1 fl (80.0-94.0); MEAN CORPUSCULAR HGB 33.3 pg (27.0-31.0); MEAN CORPUSCULAR HGB CONC 34.7 g/dl (33.0-37.0); MEAN PLATELET VOLUME 9.2 fl (9.6-12.3); PLATELET COUNT AUTOMATED 374 10*3/uL (130-400); RED BLOOD COUNT 4.11 10*6/uL (4.50-5.90); RED CELL DISTRI WIDTH 12.6 % (0-14.5); WHITE BLOOD COUNT 15.9 10*3/uL (4.8-10.8)
[2021-08-07 03:05] LABS: MANUAL DIFF REFLEX YES
[2021-08-07 03:21] LABS: ALKALINE PHOSPHATASE 173 U/L (45-117); BUN 17 mg/dl (7-24); CHLORIDE 97 mmol/L (98-107); CREATININE 1.04 mg/dL (0.70-1.30); POTASSIUM 3.9 mmol/L (3.5-5.1); SGOT/AST 16 IU/L (3-35); SGPT/ALT 20 U/L (12-78); SODIUM 134 mmol/L (136-145); TOTAL PROTEIN 7.3 gm/dL (6.4-8.2)
[2021-08-07 03:39] LABS: PLATELET SUFFICIENCY NORMAL (NORMAL); TOTAL CELLS COUNTED 100 #CELLS
[2021-08-07 05:25] VITALS: BP 109/67
[2021-08-07 07:33] LABS: ABG BASE EXCESS 4.7 mmol/L (-2.0-2.0); ARTERIAL BLOOD GAS PH 7.404 (7.35-7.45); ARTERIAL BLOOD GAS PO2 209.3 (80-90)
[2021-08-07 08:22] VITALS: BP 109/67; BP 132/60
[2021-08-07] MEDS ORDERED: NEURONTIN300 MG PO (11:18)
[2021-08-07] MEDS ORDERED: METFORMIN HYD1000 MG PO (11:18)
[2021-08-07 14:50] VITALS: BP 124/71
[2021-08-07] MEDS ORDERED: HYDR25T PO (18:19)
[2021-08-07] MEDS ORDERED: B12 ACTIVE1000 MCG PO (18:19)
[2021-08-07] MEDS ORDERED: MELOXICAM15 MG PO (18:20)
[2021-08-07] MEDS ORDERED: STIOLTO RESPIMAT4 GM INH (18:21)
[2021-08-07] MEDS ORDERED: MONTELUKAST SOD10 MG PO (18:22)
[2021-08-07] MEDS ORDERED: PRAVASTATIN SOD20 MG PO (18:22)
[2021-08-07] MEDS ORDERED: MUCINEX1200 M1 PO (18:25)
[2021-08-07 20:00] VITALS: BP 117/52
[2021-08-08] VITALS: BP 117/53
[2021-08-08 06:01] LABS: HEMATOCRIT 37.7 % (42.0-52.0); MEAN CELL VOLUME 98.4 fl (80.0-94.0); MEAN CORPUSCULAR HGB 33.2 pg (27.0-31.0); MEAN CORPUSCULAR HGB CONC 33.7 g/dl (33.0-37.0); MEAN PLATELET VOLUME 9.4 fl (9.6-12.3); PLATELET COUNT AUTOMATED 386 10*3/uL (130-400); RED BLOOD COUNT 3.83 10*6/uL (4.50-5.90); RED CELL DISTRI WIDTH 12.8 % (0-14.5); WHITE BLOOD COUNT 13.2 10*3/uL (4.8-10.8)
[2021-08-08 06:30] LABS: MANUAL DIFF REFLEX YES
[2021-08-08 06:31] LABS: BUN 19 mg/dl (7-24); CHLORIDE 98 mmol/L (98-107); CREATININE 1.01 mg/dL (0.70-1.30); SODIUM 136 mmol/L (136-145)
[2021-08-08 07:42] LABS: PLATELET SUFFICIENCY NORMAL (NORMAL); TOTAL CELLS COUNTED 100 #CELLS
[2021-08-08 08:00] VITALS: BP 121/61
[2021-08-08 12:00] VITALS: BP 122/62
[2021-08-08 16:00] VITALS: BP 131/52
[2021-08-08 20:00] VITALS: BP 137/54
[2021-08-09] VITALS: BP 121/59
[2021-08-09 06:07] LABS: HEMATOCRIT 34.9 % (42.0-52.0); MEAN CELL VOLUME 98.9 fl (80.0-94.0); MEAN CORPUSCULAR HGB CONC 34.4 g/dl (33.0-37.0); MEAN PLATELET VOLUME 9.5 fl (9.6-12.3); PLATELET COUNT AUTOMATED 395 10*3/uL (130-400); RED BLOOD COUNT 3.53 10*6/uL (4.50-5.90); RED CELL DISTRI WIDTH 12.9 % (0-14.5); WHITE BLOOD COUNT 14.8 10*3/uL (4.8-10.8)
[2021-08-09 06:14] LABS: BUN 18 mg/dl (7-24); CHLORIDE 99 mmol/L (98-107); CREATININE 1.07 mg/dL (0.70-1.30); SODIUM 135 mmol/L (136-145)
[2021-08-09 06:25] LABS: MANUAL DIFF REFLEX YES
[2021-08-09 07:21] LABS: PLATELET SUFFICIENCY NORMAL (NORMAL); TOTAL CELLS COUNTED 100 #CELLS
[2021-08-09 08:00] VITALS: BP 130/70
[2021-08-09 11:29] LABS: BILIRUBIN Negative (Negative); BLOOD Negative (Negative); CLARITY Clear (Clear); COLOR Yellow (Yellow); GLUCOSE 2+ (Negative); KETONE Negative (Negative); LEUKO ESTERASE Negative (Negative); NITRITE Negative (Negative); SPECIFIC GRAVITY 1.015 (1.001-1.030); UROBILINOGEN 0.2 E.U./dl (0.0-1.0)
[2021-08-09 11:35] LABS: EPITHELIAL CELLS 0-2; RBC 0-2 rbc/hpf (0-2); WBC 0-2 wbc/hpf (0-5)
[2021-08-09 12:00] VITALS: BP 104/64
[2021-08-09 16:00] VITALS: BP 112/74
[2021-08-09 20:00] VITALS: BP 136/63
[2021-08-10] VITALS: BP 113/67
[2021-08-10 06:22] LABS: HEMATOCRIT 36.2 % (42.0-52.0); MEAN CELL VOLUME 99.2 fl (80.0-94.0); MEAN CORPUSCULAR HGB 33.4 pg (27.0-31.0); MEAN CORPUSCULAR HGB CONC 33.7 g/dl (33.0-37.0); MEAN PLATELET VOLUME 9.5 fl (9.6-12.3); PLATELET COUNT AUTOMATED 419 10*3/uL (130-400); RED BLOOD COUNT 3.65 10*6/uL (4.50-5.90); RED CELL DISTRI WIDTH 12.7 % (0-14.5)
[2021-08-10 06:33] LABS: BUN 20 mg/dl (7-24); CHLORIDE 99 mmol/L (98-107); CREATININE 1.12 mg/dL (0.70-1.30); POTASSIUM 3.9 mmol/L (3.5-5.1); SODIUM 136 mmol/L (136-145)
[2021-08-10 06:40] LABS: MANUAL DIFF REFLEX YES
[2021-08-10 06:58] LABS: TOTAL CELLS COUNTED 100 #CELLS
[2021-08-10 06:59] LABS: PLATELET SUFFICIENCY HIGH (NORMAL); POLYCHROMASIA SLIGHT; TARGET CELLS FEW
[2021-08-10 08:00] VITALS: BP 124/73
[2021-08-10] MEDS ORDERED: ZITHROMAX TRI-500 M1 PO (10:47)
== END 2021-08-10 12:22 | disposition home or self-care (01) | DRG 871 ==
LOC: ED 21:48 → 5E 08-07 02:31 → EDHOLD 08-07 02:31 → 5E 08-07 14:22
PROVIDERS: Emergency Medicine; Hospitalist; Internal Medicine; Student in an Organized Health Care Education/Training Program; ADMIT Family Medicine; ATTEND Family Medicine
PROC: 5A09457 Assistance with Respiratory Ventilation, 24-96 Consecutive Hours, Continuous Positive Airway Pressure (ICD-10-PCS; principal; 2021-08-07)
PROC: 5A09357 Assistance with Respiratory Ventilation, Less than 24 Consecutive Hours, Continuous Positive Airway Pressure (ICD-10-PCS; 2021-08-09)
PROC: 5A09357 Assistance with Respiratory Ventilation, Less than 24 Consecutive Hours, Continuous Positive Airway Pressure (ICD-10-PCS; 2021-08-10)
DX: A41.9 Sepsis, unspecified organism (principal); J96.21 Acute and chronic respiratory failure with hypoxia; J96.22 Acute and chronic respiratory failure with hypercapnia; J18.9 Pneumonia, unspecified organism; J44.1 Chronic obstructive pulmonary disease with (acute) exacerbation; I50.32 Chronic diastolic (congestive) heart failure; J44.0 Chronic obstructive pulmonary disease with (acute) lower respiratory infection; E11.65 Type 2 diabetes mellitus with hyperglycemia; E66.9 Obesity, unspecified; D53.9 Nutritional anemia, unspecified; I27.20 Pulmonary hypertension, unspecified; Z99.81 Dependence on supplemental oxygen; I11.0 Hypertensive heart disease with heart failure; E78.5 Hyperlipidemia, unspecified; Z90.49 Acquired absence of other specified parts of digestive tract; Z79.82 Long term (current) use of aspirin; Z79.2 Long term (current) use of antibiotics; Z79.899 Other long term (current) drug therapy; Z68.25 Body mass index [BMI] 25.0-25.9, adult

== ENCOUNTER → 2022-07-02 | Day surgery (SDC) | payer OTHER ==
[~2022-07-02] VITALS: Ht 165.1 cm; Wt 68.9 kg
[~2022-07-02] MED LIST changes: +B12 ACTIVE1000 MCG PO; +HYDR25T PO; +MELOXICAM15 MG PO; +METFORMIN HYD1000 MG PO; +MONTELUKAST SOD10 MG PO; +NEURONTIN300 MG PO; +PRAVASTATIN SOD20 MG PO; +STIOLTO RESPIMAT4 GM INH; +ZITHROMAX TRI-500 M1 PO
[2022-07-02 08:30] VITALS: BP 126/58
[2022-07-02 09:26] VITALS: BP 132/70
[2022-07-02 09:35] VITALS: BP 122/48
[2022-07-02 09:56] VITALS: BP 116/72
[2022-07-02 11:21] VITALS: BP 107/75
[2022-07-03 11:07] LABS: ACID FAST SPEC PROCESSING Concentration (.)
== END | disposition home or self-care (01) ==
LOC: SDC 06-30 08:00
PROVIDERS: ATTEND Internal Medicine Critical Care Medicine
DX: R05.9 Cough, unspecified (principal); J44.9 Chronic obstructive pulmonary disease, unspecified; E11.9 Type 2 diabetes mellitus without complications; I11.0 Hypertensive heart disease with heart failure; I50.9 Heart failure, unspecified; E78.5 Hyperlipidemia, unspecified; Z87.891 Personal history of nicotine dependence

== ENCOUNTER → 2023-11-27 | Outpatient (CLI) | payer OTHER ==
[~2023-11-27] MED LIST changes: +ALBUTEROL0.63 MG/3 INH; +BREZTRI AEROS10.7 GM INH; +DOXYCYCLINE HY100 M3 PO; +K-TAB20 MEQ PO; +MAGNESIUM OXID420 M1 PO; +TERBINAFINE15 GM T
== END | disposition home or self-care (01) ==
LOC: CT 12:51
PROVIDERS: ATTEND Internal Medicine Critical Care Medicine
DX: Z12.2 Encounter for screening for malignant neoplasm of respiratory organs (principal); F17.210 Nicotine dependence, cigarettes, uncomplicated; I25.10 Atherosclerotic heart disease of native coronary artery without angina pectoris; J43.9 Emphysema, unspecified; R91.8 Other nonspecific abnormal finding of lung field

== ENCOUNTER → 2023-12-11 | Day surgery (SDC) | payer OTHER ==
[~2023-12-11] VITALS: Ht 165.1 cm; Wt 68.0 kg
[~2023-12-11] MED LIST changes: +Albuterol Sulf/Ipratropium 3 ML VIAL NEB ONE; +Albuterol Sulfate 2.5 MG/0.5 ML VIAL NEB ONE; +Lactated Ringer's Solution 1,000 ML IV ONE; +Lidocaine Hydrochloride 4% 5 ML AMP NEB ONE; +Lidocaine Hydrochloride 4% 5 ML AMP ONE; +PROPOFOL 200 MG/20 ML VIAL IV ONE
[2023-12-11 08:32] VITALS: BP 141/71
[2023-12-11 09:30] VITALS: BP 158/62
[2023-12-11 09:44] VITALS: BP 154/98
[2023-12-11 10:00] VITALS: BP 134/77
[2023-12-12 14:09] LABS: ACID FAST SPEC PROCESSING Concentration (.)
== END | disposition home or self-care (01) ==
LOC: SDC 12-08 08:00
PROVIDERS: ATTEND Internal Medicine Critical Care Medicine
DX: R05.9 Cough, unspecified (principal); J40 Bronchitis, not specified as acute or chronic; J98.09 Other diseases of bronchus, not elsewhere classified; I11.0 Hypertensive heart disease with heart failure; I50.32 Chronic diastolic (congestive) heart failure; J44.9 Chronic obstructive pulmonary disease, unspecified; E78.5 Hyperlipidemia, unspecified; Z90.49 Acquired absence of other specified parts of digestive tract; Z98.890 Other specified postprocedural states; Z79.82 Long term (current) use of aspirin; Z79.899 Other long term (current) drug therapy; Z80.3 Family history of malignant neoplasm of breast

== ENCOUNTER → 2024-08-08 | Outpatient (CLI) | payer OTHER ==
[~2024-08-08] MED LIST changes: -Albuterol Sulf/Ipratropium 3 ML VIAL NEB ONE; -Albuterol Sulfate 2.5 MG/0.5 ML VIAL NEB ONE; -Lactated Ringer's Solution 1,000 ML IV ONE; -Lidocaine Hydrochloride 4% 5 ML AMP NEB ONE; -Lidocaine Hydrochloride 4% 5 ML AMP ONE; -PROPOFOL 200 MG/20 ML VIAL IV ONE
== END | disposition home or self-care (01) ==
LOC: CT 07-04 11:00
PROVIDERS: ATTEND Internal Medicine Critical Care Medicine
DX: R91.8 Other nonspecific abnormal finding of lung field (principal); J44.9 Chronic obstructive pulmonary disease, unspecified; J45.50 Severe persistent asthma, uncomplicated; J96.11 Chronic respiratory failure with hypoxia; J47.9 Bronchiectasis, uncomplicated; I25.10 Atherosclerotic heart disease of native coronary artery without angina pectoris; Z87.891 Personal history of nicotine dependence; Z99.81 Dependence on supplemental oxygen